=== PATIENT | female | born 1955 | race Caucasian/White ===

== ENCOUNTER 2017-06-13 18:55 | Emergency (ER) | payer BC, OTHER ==
[~2017-06-13] VITALS: Ht 157.5 cm; Wt 83.5 kg
[2017-06-13 20:19] LABS: Urine RBC None Seen /hpf (0 - 4)
[2017-06-13 20:45] LABS: Urine Bilirubin Negative (Negative); Urine Blood Negative /uL (Negative); Urine Color Yellow (Yellow); Urine Glucose 4+ mg/dL (Normal); Urine Ketone 1+ (Negative); Urine Mucus FEW (None Seen); Urine Nitrite Negative (Negative); Urine Squamous Epithelial Cell FEW /hpf (<5); Urine Urobilinogen Normal (Negative); Urine pH 5.5 (5.0-8.0)
[2017-06-13 21:14] LABS: Albumin 3.6 g/dL (3.4-5.0); Alkaline Phosphatase 89 U/L (45-117); Anion Gap 7 (5-15); Aspartate Aminotransferase 48 U/L (15-37); BUN/Creatinine Ratio 33.8; Bilirubin, Total 0.3 mg/dL (0.2-1.0); Blood Urea Nitrogen 25 mg/dL (7-18); Calcium 9.3 mg/dL (8.5-10.1); Carbon Dioxide 30 mmol/L (21-32); Chloride 99 mmol/L (98-107); GFR African American 102 mL/min; GFR Non-African American 84 mL/min; Glucose 241 mg/dL (74-106); Magnesium 1.9 mg/dL (1.6-2.6); Potassium 3.8 mmol/L (3.5-5.1); Sodium 136 mmol/L (136-145); Total Protein 8.1 g/dL (6.4-8.2)
[2017-06-13 21:20] LABS: Basophils # (auto) 0 uL; Basophils % (auto) 0.2 % (0.0-2.0); CONDITION Y; DEFINITIVE SEE PRINTOUT; Eosinophils # (auto) 0.8 uL; Eosinophils % (auto) 5.6 % (0.0-7.0); Hematocrit 38.8 % (36.0-46.0); Lymphocytes # (auto) 2.5 uL; Mean Corpuscular Hemoglobin 19.8 pg (28.0-32.0); Mean Corpuscular Hgb Conc. 30.9 g/dL (32.0-36.0); Mean Corpuscular Volume 64.1 fL (80.0-100.0); Mean Platelet Volume 10.3 fL (6.9-10.8); Monocytes # (auto) 0.6 uL; Neutrophils # (auto) 10.2 uL; Neutrophils % (auto) 72.2 % (37.0-80.0); Platelet Count (auto) 377 10^3/uL (140-450); Red Cell Distribution Width 15.3 % (11.8-14.3); White Blood Cell 14.1 10^3/uL (4.4-10.8)
[2017-06-13 21:21] LABS: B-Type Natriuretic Peptide 7.23 pg/mL (0-100)
[2017-06-13 21:46] LABS: Temperature: 22.7 C (20.0-25.0)
[2017-06-13 21:50] LABS: Hypochromia Marked; Microcytosis Marked; Platelet Estimate Adequate
[2017-06-14] MEDS ORDERED: cefTRIAXone 1GM/50ML D5W 50 ML IV ONE (02:15)
[2017-06-14] MEDS ORDERED: SODIUM CHLORIDE 0.9% 1,000 ML IV ONE (02:15)
[2017-06-14 04:51] VITALS: BP 112/67
== END 2017-06-14 05:22 | disposition home or self-care (01) ==
LOC: ER 19:03
DX: E11.9 Type 2 diabetes mellitus without complications (principal); M79.604 Pain in right leg; M79.605 Pain in left leg; J45.909 Unspecified asthma, uncomplicated; I10 Essential (primary) hypertension; Z90.89 Acquired absence of other organs; Z90.49 Acquired absence of other specified parts of digestive tract
CPT/HCPCS: 36415; 71010; 80053; 81001; 83735; 83880; 84484; 85025; 93005; 96365; 99285; J0696; J7030

== ENCOUNTER 2021-06-12 04:11 | Emergency (ER) | payer BC ==
[~2021-06-12] VITALS: Ht 157.5 cm; Wt 80.3 kg
[2021-06-12 08:14] LABS: Basophils # (auto) 0 10 ^3/uL (0-0.2); Eosinophils # (auto) 0 10 ^3/uL (0-0.8); Eosinophils % (auto) 0.1 % (0.0-7.0); Lymphocytes # (auto) 1.2 10 ^3/uL (0.4-5.4); Monocytes # (auto) 0.4 10 ^3/uL (0-1.3)
[2021-06-12] MEDS ORDERED: SODIUM CHLORIDE 0.9% 1,000 ML IV ONE (08:15)
[2021-06-12 08:17] LABS: Basophils % (auto) 0.2 % (0.0-2.0); Hemoglobin 11.1 g/dL (12.2-16.2); Lymphocytes % (auto) 8.7 % (10.0-50.0); Mean Corpuscular Hemoglobin 19.7 pg (28.0-32.0); Mean Corpuscular Hgb Conc. 30.7 g/dL (32.0-36.0); Mean Corpuscular Volume 64.1 fL (80.0-100.0); Neutrophils # (auto) 12.4 10 ^3/uL (1.6-8.6); Nucleated Red Blood Cells % 0.2 %; Red Blood Cells 5.62 10^6/uL (4.0-5.20); White Blood Cell 14.1 10^3/uL (4.4-10.8)
[2021-06-12 08:34] LABS: Albumin 3.5 g/dL (3.4-5.0); Anion Gap 11 (5-15); Blood Urea Nitrogen 31 mg/dL (7-18); Calcium 8.9 mg/dL (8.5-10.1); Carbon Dioxide 22 mmol/L (21-32); Chloride 101 mmol/L (98-107); Glucose 360 mg/dL (74-106); Potassium 4.1 mmol/L (3.5-5.1); Sodium 134 mmol/L (136-145)
[2021-06-12 08:40] LABS: Alanine Aminotransferase 41 U/L (13-56); Alkaline Phosphatase 81 U/L (45-117); Aspartate Aminotransferase 17 U/L (15-37); BUN/Creatinine Ratio 30.4; Bilirubin, Total 0.4 mg/dL (0.2-1.0); GFR African American 69 mL/min; GFR Non-African American 57 mL/min; Total Protein 7.8 g/dL (6.4-8.2)
[2021-06-12] MEDS ORDERED: ALBUTEROL SULF 2.5 MG/0.5ML(0.5%) NEB SOLN HHN STA (14:43)
[2021-06-12] MEDS ORDERED: IPRATROPIUM BROM 0.5 MG/2.5ML INH SOL NEB ONE ×2 (14:45)
[2021-06-12] MEDS ORDERED: ALBUTEROL SULF 2.5 MG/0.5ML(0.5%) NEB SOLN NEB ONE (14:45)
[2021-06-12 15:52] VITALS: BP 120/60
== END 2021-06-12 16:00 | disposition home or self-care (01) ==
LOC: ER 04:11
DX: E11.65 Type 2 diabetes mellitus with hyperglycemia (principal); J45.901 Unspecified asthma with (acute) exacerbation; D50.9 Iron deficiency anemia, unspecified; I10 Essential (primary) hypertension; Z90.49 Acquired absence of other specified parts of digestive tract; Z90.89 Acquired absence of other organs; Z20.822 Contact with and (suspected) exposure to COVID-19
CPT/HCPCS: 36415; 71046; 80053; 82962; 83735; 84484; 85025; 87426; 93005; 94640; 96360; 96361; 99285; J7030; J7644

== ENCOUNTER 2021-10-29 13:40 | Emergency (ER) | payer BC ==
[~2021-10-29] VITALS: Ht 157.5 cm; Wt 72.6 kg
[2021-10-29] MEDS ORDERED: SODIUM CHLORIDE 0.9% 1,000 ML IV ONE (14:00)
[2021-10-29 14:37] LABS: Basophils # (auto) 0 10 ^3/uL (0-0.2); Eosinophils # (auto) 0.2 10 ^3/uL (0-0.8); Hematocrit 28.5 % (36.0-46.0); Monocytes # (auto) 0.4 10 ^3/uL (0-1.3); Monocytes % (auto) 3.9 % (0.0-12.0); Neutrophils # (auto) 7.7 10 ^3/uL (1.6-8.6); Nucleated Red Blood Cells % 0.1 %
[2021-10-29 14:39] LABS: Basophils % (auto) 0.2 % (0.0-2.0); Eosinophils % (auto) 2.1 % (0.0-7.0); Lymphocytes # (auto) 1.1 10 ^3/uL (0.4-5.4); Lymphocytes % (auto) 11.7 % (10.0-50.0); Mean Corpuscular Hemoglobin 22.5 pg (28.0-32.0); Mean Corpuscular Hgb Conc. 31.6 g/dL (32.0-36.0); Mean Corpuscular Volume 71.4 fL (80.0-100.0); Neutrophils % (auto) 82.1 % (37.0-80.0); Red Blood Cells 3.99 10^6/uL (4.0-5.20); White Blood Cell 9.4 10^3/uL (4.4-10.8)
[2021-10-29 15:00] LABS: Calcium 8.5 mg/dL (8.5-10.1); Potassium 3.6 mmol/L (3.5-5.1)
[2021-10-29 15:04] LABS: BUN/Creatinine Ratio 41.1; Bilirubin, Total 0.5 mg/dL (0.2-1.0); Total Protein 7.6 g/dL (6.4-8.2)
[2021-10-29 16:40] LABS: CRP High Sensitivity 8.01 mg/dL (< 0.3)
[2021-10-29] MEDS ORDERED: IOHEXOL 300 MG/ML 100ML BOTTLE IJ ONE (16:46)
[2021-10-29 22:10] VITALS: BP 101/44
== END 2021-10-29 22:14 | disposition home or self-care (01) ==
LOC: ER 13:40
DX: R19.7 Diarrhea, unspecified (principal); D50.9 Iron deficiency anemia, unspecified; R79.82 Elevated C-reactive protein (CRP); E11.9 Type 2 diabetes mellitus without complications; I10 Essential (primary) hypertension; J45.909 Unspecified asthma, uncomplicated; Z90.49 Acquired absence of other specified parts of digestive tract; Z90.89 Acquired absence of other organs
CPT/HCPCS: 36415; 74177; 80053; 83605; 83735; 85025; 86141; 87426; 93005; 96360; 96361; 99285; J7030; Q9967

== ENCOUNTER 2021-10-31 08:17 | Emergency (ER) | payer BC ==
[~2021-10-31] VITALS: Ht 157.5 cm; Wt 72.6 kg
[2021-10-31 09:19] LABS: Basophils # (auto) 0 10 ^3/uL (0-0.2); Basophils % (auto) 0.2 % (0.0-2.0); Eosinophils # (auto) 0.2 10 ^3/uL (0-0.8); Hemoglobin 8.6 g/dL (12.2-16.2); Lymphocytes # (auto) 0.6 10 ^3/uL (0.4-5.4); Mean Corpuscular Hgb Conc. 31.2 g/dL (32.0-36.0); Monocytes # (auto) 0.2 10 ^3/uL (0-1.3); Neutrophils # (auto) 6.4 10 ^3/uL (1.6-8.6)
[2021-10-31 09:21] LABS: Hematocrit 27.5 % (36.0-46.0); Lymphocytes % (auto) 7.9 % (10.0-50.0); Monocytes % (auto) 2.9 % (0.0-12.0); Red Blood Cells 3.85 10^6/uL (4.0-5.20); White Blood Cell 7.4 10^3/uL (4.4-10.8)
[2021-10-31 09:25] LABS: Mean Corpuscular Hemoglobin 22.3 pg (28.0-32.0); Mean Corpuscular Volume 71.6 fL (80.0-100.0); Red Cell Distribution Width 19.3 % (11.8-14.3)
[2021-10-31 09:35] LABS: Albumin 2.8 g/dL (3.4-5.0); Calcium 8.8 mg/dL (8.5-10.1); Potassium 3.3 mmol/L (3.5-5.1)
[2021-10-31 09:41] LABS: BUN/Creatinine Ratio 21.2; Bilirubin, Total 0.3 mg/dL (0.2-1.0); Total Protein 7.3 g/dL (6.4-8.2)
[2021-10-31 12:19] LABS: Urine Bacteria NONE SEEN /hpf (None Seen); Urine Blood Negative /uL (Negative); Urine Hyaline Cast FEW /lpf (0 - 2); Urine Mucus FEW (None Seen); Urine Specific Gravity 1.019 (1.001-1.035); Urine WBC 15 /hpf (0 - 5)
[2021-10-31] MEDS ORDERED: NITR-87 PO (13:08)
[2021-10-31] MEDS ORDERED: POTASSIUM EFFERVESENT TAB 25 MEQ PO ONE (13:15)
[2021-10-31 13:28] VITALS: BP 126/65
== END 2021-10-31 14:50 | disposition home or self-care (01) ==
LOC: ER 08:17
DX: K52.9 Noninfective gastroenteritis and colitis, unspecified (principal); N39.0 Urinary tract infection, site not specified; E11.9 Type 2 diabetes mellitus without complications; I10 Essential (primary) hypertension; J45.909 Unspecified asthma, uncomplicated; Z90.49 Acquired absence of other specified parts of digestive tract; Z90.89 Acquired absence of other organs
CPT/HCPCS: 36415; 80053; 81001; 82962; 84484; 85025; 93005

== ENCOUNTER 2022-08-04 16:25 | Emergency (ER) | payer BC ==
[~2022-08-04] VITALS: Ht 157.5 cm; Wt 80.0 kg
[~2022-08-04 16:25] MED LIST: NITR-87 PO
[2022-08-04 17:05] VITALS: BP 178/51
[2022-08-04] MEDS ORDERED: TRAM-297 PO (18:11)
[2022-08-04] MEDS ORDERED: HYDROcodone-ACET 5/325MG TAB PO ONE (18:15)
== END 2022-08-04 18:19 | disposition home or self-care (01) ==
LOC: ER 16:25
DX: M54.41 Lumbago with sciatica, right side (principal); M43.16 Spondylolisthesis, lumbar region; E11.9 Type 2 diabetes mellitus without complications; I10 Essential (primary) hypertension; J45.909 Unspecified asthma, uncomplicated; Z90.49 Acquired absence of other specified parts of digestive tract; Z90.89 Acquired absence of other organs
CPT/HCPCS: 72100

== ENCOUNTER 2022-08-19 12:06 | Emergency (ER) | payer BC ==
[~2022-08-19] VITALS: Ht 157.5 cm; Wt 81.0 kg
[~2022-08-19 12:06] MED LIST changes: +TRAM-297 PO
[2022-08-19 12:29] VITALS: BP 140/63
[2022-08-19] MEDS ORDERED: SODIUM CHLORIDE 0.9% 1,000 ML IV ONE (13:00)
[2022-08-19] MEDS ORDERED: SODIUM CHLORIDE 0.9% 1,000 ML IVB ONE (13:00)
[2022-08-19 13:21] LABS: Basophils # (auto) 0 10 ^3/uL (0-0.2); Basophils % (auto) 0.2 % (0.0-2.0); Eosinophils # (auto) 0.1 10 ^3/uL (0-0.8); Eosinophils % (auto) 0.7 % (0.0-7.0); Monocytes # (auto) 0.5 10 ^3/uL (0-1.3); White Blood Cell 11.2 10^3/uL (4.4-10.8)
[2022-08-19 13:23] LABS: Hematocrit 30.2 % (36.0-46.0); Hemoglobin 9.3 g/dL (12.2-16.2); Lymphocytes # (auto) 0.5 10 ^3/uL (0.4-5.4); Lymphocytes % (auto) 4.8 % (10.0-50.0); Mean Corpuscular Hemoglobin 19.3 pg (28.0-32.0); Mean Corpuscular Hgb Conc. 30.7 g/dL (32.0-36.0); Mean Corpuscular Volume 62.7 fL (80.0-100.0); Monocytes % (auto) 4.8 % (0.0-12.0); Neutrophils % (auto) 89.5 % (37.0-80.0); Red Blood Cells 4.82 10^6/uL (4.0-5.20)
[2022-08-19 13:55] LABS: Potassium 3.6 mmol/L (3.5-5.1)
[2022-08-19 13:56] LABS: Albumin 3.4 g/dL (3.4-5.0); BUN/Creatinine Ratio 18.5; Calcium 9.1 mg/dL (8.5-10.1); Magnesium 1.8 mg/dL (1.6-2.6)
[2022-08-19 13:58] LABS: Bilirubin, Total 0.8 mg/dL (0.2-1.0); Total Protein 7.7 g/dL (6.4-8.2)
[2022-08-19] MEDS ORDERED: AZIT500T PO (16:07)
[2022-08-19] MEDS ORDERED: DEXT1SYP9 PO (16:07)
[2022-08-19] MEDS ORDERED: DICL50TA2 PO (16:07)
== END 2022-08-19 17:35 | disposition home or self-care (01) ==
LOC: ER 12:06
DX: J40 Bronchitis, not specified as acute or chronic (principal); B34.9 Viral infection, unspecified; D50.9 Iron deficiency anemia, unspecified; E11.9 Type 2 diabetes mellitus without complications; I10 Essential (primary) hypertension; J45.909 Unspecified asthma, uncomplicated; Z90.49 Acquired absence of other specified parts of digestive tract; Z90.89 Acquired absence of other organs; Z20.822 Contact with and (suspected) exposure to COVID-19
CPT/HCPCS: 36415; 71046; 80053; 82962; 83735; 85025; 87426; 87804

== ENCOUNTER 2022-08-20 23:20 | Inpatient (IN) | payer MEDICARE, BC ==
[~2022-08-20] VITALS: Ht 157.5 cm; Wt 80.9 kg
[~2022-08-20 23:20] MED LIST changes: +AZIT500T PO; +DEXT1SYP9 PO; +DICL50TA2 PO
[2022-08-21] MEDS ORDERED: DexAMETHasone SOD PHOS 10MG/1ML VIAL INJ IM ONE (00:30)
[2022-08-21 00:40] LABS: Basophils # (auto) 0 10 ^3/uL (0-0.2); Basophils % (auto) 0.2 % (0.0-2.0); Eosinophils # (auto) 0.3 10 ^3/uL (0-0.8); Eosinophils % (auto) 4.2 % (0.0-7.0); Hematocrit 30.2 % (36.0-46.0); Hemoglobin 9.1 g/dL (12.2-16.2); Lymphocytes # (auto) 0.7 10 ^3/uL (0.4-5.4); Lymphocytes % (auto) 9.2 % (10.0-50.0); Mean Corpuscular Hemoglobin 19.2 pg (28.0-32.0); Mean Corpuscular Hgb Conc. 30.1 g/dL (32.0-36.0); Mean Corpuscular Volume 63.7 fL (80.0-100.0); Monocytes # (auto) 0.5 10 ^3/uL (0-1.3); Neutrophils # (auto) 5.8 10 ^3/uL (1.6-8.6); Neutrophils % (auto) 79.4 % (37.0-80.0); Nucleated Red Blood Cells % 0.1 %; Red Blood Cells 4.75 10^6/uL (4.0-5.20); Red Cell Distribution Width 14.9 % (11.8-14.3); White Blood Cell 7.3 10^3/uL (4.4-10.8)
[2022-08-21 00:52] LABS: Albumin 3.2 g/dL (3.4-5.0); BUN/Creatinine Ratio 31.8; Calcium 8.7 mg/dL (8.5-10.1); Potassium 3.9 mmol/L (3.5-5.1)
[2022-08-21 00:54] LABS: Bilirubin, Total 0.6 mg/dL (0.2-1.0); Total Protein 6.9 g/dL (6.4-8.2)
[2022-08-21] MEDS ORDERED: ALBUTEROL SULF 2.5 MG/0.5ML(0.5%) NEB SOLN NEB ONE ×2 (05:45)
[2022-08-21] MEDS ORDERED: IPRATROPIUM BROM 0.5 MG/2.5ML INH SOL NEB ONE ×2 (05:45)
[2022-08-21] MEDS ORDERED: DEXTROSE (50%) 50ML SYRG IV PRN (07:15)
[2022-08-21] MEDS ORDERED: ACETAMINOPHEN 325 MG TAB PO PRN (07:15)
[2022-08-21] MEDS ORDERED: NITROGLYCERIN 0.4 MG SL TAB SL PRN (07:15)
[2022-08-21] MEDS ORDERED: MORPHINE SULFATE INJ 2 MG/ml SYRG IV PRN (07:15)
[2022-08-21] MEDS ORDERED: ONDANSETRON HCL 4 MG/2 ML VIAL IV PRN (07:15)
[2022-08-21] MEDS: amLODIPine BESYLATE 5 MG TAB PO SCH (10:18)
[2022-08-21] MEDS: ASPirin 81 mg TAB PO SCH (10:18)
[2022-08-21] MEDS: methylPREDNISolone SOD SUCC 40 MG/ML VL IV SCH ×2 (10:19→21:49)
[2022-08-21] MEDS: ACCU-CHEK COMFORT CURVE STRIP VI SCH ×3 (11:50→21:54)
[2022-08-21] MEDS: InsuLIN REG 1unit/0.01ml Soln (100units/ml) SC SCH ×3 (11:50→22:56)
[2022-08-21] MEDS: IPRATROPIUM BROM 0.5 MG/2.5ML INH SOL NEB SCH ×2 (12:00→18:42)
[2022-08-21] MEDS: ALBUTEROL SULF 2.5 MG/0.5ML(0.5%) NEB SOLN NEB SCH ×2 (12:00→18:42)
[2022-08-21] MEDS: guaiFENesin-DM 100/10mg/5ml SYR PO PRN (18:31)
[2022-08-21 20:48] VITALS: BP 107/52
[2022-08-21 21:46] VITALS: BP 109/48
[2022-08-21 22:00] VITALS: BP 105/48
[2022-08-22] MEDS: guaiFENesin-DM 100/10mg/5ml SYR PO PRN ×2 (01:37→17:55)
[2022-08-22] MEDS: IPRATROPIUM BROM 0.5 MG/2.5ML INH SOL NEB SCH ×4 (01:44→18:56)
[2022-08-22] MEDS: ALBUTEROL SULF 2.5 MG/0.5ML(0.5%) NEB SOLN NEB SCH ×4 (01:45→18:55)
[2022-08-22 05:00] VITALS: BP 104/44
[2022-08-22 05:46] LABS: Basophils # (auto) 0 10 ^3/uL (0-0.2); Eosinophils # (auto) 0 10 ^3/uL (0-0.8); Mean Corpuscular Hemoglobin 19.6 pg (28.0-32.0); Mean Corpuscular Hgb Conc. 31.4 g/dL (32.0-36.0); Monocytes # (auto) 0.2 10 ^3/uL (0-1.3); Nucleated Red Blood Cells % 0.1 %
[2022-08-22 05:49] LABS: Basophils % (auto) 0.1 % (0.0-2.0); Hematocrit 26.6 % (36.0-46.0); Hemoglobin 8.3 g/dL (12.2-16.2); Lymphocytes # (auto) 0.5 10 ^3/uL (0.4-5.4); Mean Corpuscular Volume 62.4 fL (80.0-100.0); Monocytes % (auto) 3.2 % (0.0-12.0); Neutrophils % (auto) 89.7 % (37.0-80.0); Red Blood Cells 4.26 10^6/uL (4.0-5.20); Red Cell Distribution Width 14.8 % (11.8-14.3); White Blood Cell 6.7 10^3/uL (4.4-10.8)
[2022-08-22 06:06] LABS: BUN/Creatinine Ratio 55.9; Calcium 8.7 mg/dL (8.5-10.1)
[2022-08-22] MEDS: InsuLIN REG 1unit/0.01ml Soln (100units/ml) SC SCH ×4 (06:56→22:26)
[2022-08-22] MEDS: ACCU-CHEK COMFORT CURVE STRIP VI SCH ×4 (06:56→22:25)
[2022-08-22] MEDS ORDERED: HYDR25TA5 PO (09:59)
[2022-08-22] MEDS ORDERED: GABA100C9 PO (09:59)
[2022-08-22] MEDS ORDERED: ATOR20TA PO (09:59)
[2022-08-22] MEDS ORDERED: PIO30T PO (09:59)
[2022-08-22] MEDS ORDERED: MONT5CHW23 PO (09:59)
[2022-08-22] MEDS ORDERED: NAP500T PO (09:59)
[2022-08-22] MEDS ORDERED: LISI20TA28 PO (09:59)
[2022-08-22] MEDS: amLODIPine BESYLATE 5 MG TAB PO SCH (10:00)
[2022-08-22] MEDS ORDERED: LORA-622 PO (10:03)
[2022-08-22] MEDS: ASPirin 81 mg TAB PO SCH (11:10)
[2022-08-22] MEDS: methylPREDNISolone SOD SUCC 40 MG/ML VL IV SCH ×2 (11:10→22:24)
[2022-08-22 13:00] VITALS: BP 116/75
[2022-08-22 16:43] VITALS: BP 101/55
[2022-08-22] MEDS ORDERED: ATORVASTATIN 20 MG TAB PO SCH (22:00)
[2022-08-22] MEDS: GABAPENTIN 100 MG CAP PO SCH (22:25)
[2022-08-22 23:06] VITALS: BP 151/50
[2022-08-23] MEDS: ACCU-CHEK COMFORT CURVE STRIP VI SCH ×2 (05:50→12:41)
[2022-08-23] MEDS: IPRATROPIUM BROM 0.5 MG/2.5ML INH SOL NEB SCH ×2 (05:54→13:22)
[2022-08-23] MEDS: ALBUTEROL SULF 2.5 MG/0.5ML(0.5%) NEB SOLN NEB SCH ×2 (05:54→13:22)
[2022-08-23 06:04] VITALS: BP 110/51
[2022-08-23] MEDS: InsuLIN REG 1unit/0.01ml Soln (100units/ml) SC SCH ×2 (06:18→12:40)
[2022-08-23 09:00] VITALS: BP 125/54
[2022-08-23] MEDS ORDERED: LISINOPRIL 20 MG TAB PO SCH (10:00)
[2022-08-23] MEDS ORDERED: HCTZ 25 MG TAB PO SCH (10:00)
[2022-08-23] MEDS ORDERED: LORATADINE 10 MG TAB PO SCH (10:00)
[2022-08-23] MEDS: amLODIPine BESYLATE 5 MG TAB PO SCH (10:00)
[2022-08-23] MEDS ORDERED: PIOGLITAZONE HYDROCHLORIDE 30 MG TAB PO SCH (10:00)
[2022-08-23] MEDS: GABAPENTIN 100 MG CAP PO SCH (10:42)
[2022-08-23] MEDS: ASPirin 81 mg TAB PO SCH (10:43)
[2022-08-23] MEDS: methylPREDNISolone SOD SUCC 40 MG/ML VL IV SCH (10:44)
[2022-08-23] MEDS ORDERED: AZIT250T PO (11:56)
[2022-08-23] MEDS ORDERED: METH4PAK PO ×2 (11:56→13:25)
[2022-08-23 13:00] VITALS: BP 119/60
[2022-08-23] MEDS ORDERED: AZIT250T8 PO (13:24)
== END 2022-08-23 14:30 | disposition home or self-care (01) | DRG 189 ==
LOC: ER 23:20 → TELE 08-21 07:10 → TELE-WESTW 08-21 21:20
PROVIDERS: ADMIT Nurse Practitioner; ATTEND Internal Medicine
DX: J96.21 Acute and chronic respiratory failure with hypoxia (principal); J45.901 Unspecified asthma with (acute) exacerbation; E11.65 Type 2 diabetes mellitus with hyperglycemia; I10 Essential (primary) hypertension; E66.9 Obesity, unspecified; Z20.822 Contact with and (suspected) exposure to COVID-19; Z87.442 Personal history of urinary calculi; Z68.32 Body mass index [BMI] 32.0-32.9, adult; Z90.49 Acquired absence of other specified parts of digestive tract
CPT/HCPCS: 36415; 71046; 80048; 80053; 82962; 84484; 85025; 87426; 94640; 96372; 96374; G0378; J1100; J1815

== ENCOUNTER 2023-03-03 17:11 | Emergency (ER) | payer BC, MEDICARE ==
[~2023-03-03] VITALS: Ht 157.5 cm; Wt 85.2 kg
[~2023-03-03 17:11] MED LIST changes: +ATOR20TA PO; +AZIT-74 PO; +AZIT-81 PO; -AZIT500T PO; +GABA-1308 PO; +HYDR25TA5 PO; +LISI20TA56 PO; +LORA-622 PO; +METH4PAK PO; +MONT5CHW12 PO; +NAP500T PO; +PIO30T PO
[2023-03-04 01:41] LABS: Basophils # (auto) 0 10 ^3/uL (0-0.2); Hematocrit 30.4 % (36.0-46.0); Hemoglobin 9.5 g/dL (12.2-16.2); Mean Corpuscular Hemoglobin 19.7 pg (28.0-32.0); Monocytes # (auto) 0.6 10 ^3/uL (0-1.3); Neutrophils # (auto) 7.3 10 ^3/uL (1.6-8.6)
[2023-03-04 01:43] LABS: Basophils % (auto) 0.4 % (0.0-2.0); Eosinophils # (auto) 0.3 10 ^3/uL (0-0.8); Eosinophils % (auto) 3.2 % (0.0-7.0); Lymphocytes # (auto) 2.1 10 ^3/uL (0.4-5.4); Lymphocytes % (auto) 20.2 % (10.0-50.0); Mean Corpuscular Hgb Conc. 31.1 g/dL (32.0-36.0); Mean Corpuscular Volume 63.5 fL (80.0-100.0); Monocytes % (auto) 5.4 % (0.0-12.0); Neutrophils % (auto) 70.8 % (37.0-80.0); Nucleated Red Blood Cells % 0.3 %; Red Blood Cells 4.79 10^6/uL (4.0-5.20); Red Cell Distribution Width 15.2 % (11.8-14.3); White Blood Cell 10.3 10^3/uL (4.4-10.8)
[2023-03-04 02:25] LABS: Albumin 3.3 g/dL (3.4-5.0); BUN/Creatinine Ratio 37.1 (10.0-20.0); Calcium 9.3 mg/dL (8.5-10.1)
[2023-03-04 02:28] LABS: Bilirubin, Total 0.6 mg/dL (0.2-1.0); Total Protein 6.8 g/dL (6.4-8.2)
[2023-03-04 04:58] VITALS: BP 123/46
== END 2023-03-04 04:59 | disposition home or self-care (01) ==
LOC: ER 17:11
DX: R60.0 Localized edema (principal); E88.09 Other disorders of plasma-protein metabolism, not elsewhere classified; R79.89 Other specified abnormal findings of blood chemistry; J45.909 Unspecified asthma, uncomplicated; E11.9 Type 2 diabetes mellitus without complications; I10 Essential (primary) hypertension; Z87.442 Personal history of urinary calculi; Z90.89 Acquired absence of other organs; Z90.49 Acquired absence of other specified parts of digestive tract
CPT/HCPCS: 36415; 80053; 83690; 83880; 84484; 85025; 93970

== ENCOUNTER 2023-05-19 23:32 | Emergency (ER) | payer BC ==
[~2023-05-19] VITALS: Ht 157.5 cm; Wt 80.7 kg
[2023-05-20 00:06] LABS: Basophils # (auto) 0 10 ^3/uL (0-0.2); Basophils % (auto) 0.1 % (0.0-2.0); Eosinophils # (auto) 0 10 ^3/uL (0-0.8); Eosinophils % (auto) 0.1 % (0.0-7.0); Hemoglobin 8.8 g/dL (12.2-16.2); Lymphocytes # (auto) 0.4 10 ^3/uL (0.4-5.4)
[2023-05-20 00:08] LABS: Hematocrit 28.5 % (36.0-46.0); Lymphocytes % (auto) 3.6 % (10.0-50.0); Mean Corpuscular Hemoglobin 19.3 pg (28.0-32.0); Mean Corpuscular Hgb Conc. 30.9 g/dL (32.0-36.0); Mean Corpuscular Volume 62.2 fL (80.0-100.0); Monocytes # (auto) 0.3 10 ^3/uL (0-1.3); Monocytes % (auto) 2.8 % (0.0-12.0); Neutrophils # (auto) 10.6 10 ^3/uL (1.6-8.6); Neutrophils % (auto) 93.4 % (37.0-80.0); Nucleated Red Blood Cells % 0.2 %; Red Blood Cells 4.58 10^6/uL (4.0-5.20); Red Cell Distribution Width 15.3 % (11.8-14.3); White Blood Cell 11.3 10^3/uL (4.4-10.8)
[2023-05-20 00:23] LABS: Albumin 3.8 g/dL (3.4-5.0); BUN/Creatinine Ratio 33.7 (10.0-20.0)
[2023-05-20 00:26] LABS: Bilirubin, Total 0.4 mg/dL (0.2-1.0); Total Protein 7.3 g/dL (6.4-8.2)
[2023-05-20 01:48] LABS: Rapid Influenza A Negative (Negative); Rapid Influenza B Negative (Negative)
[2023-05-20 01:49] LABS: COVID19 ANTIGEN SOFIA FIA NEGATIVE (NEGATIVE)
[2023-05-20] MEDS ORDERED: DOXYCYCLINE 100 MG TAB/CAP PO ONE (03:30)
[2023-05-20] MEDS ORDERED: BUDESONIDE (INHALATION) 0.5 MG/2 ML NEB NEB ONE (03:30)
[2023-05-20] MEDS ORDERED: ALBUTEROL SULF 2.5 MG/0.5ML(0.5%) NEB SOLN NEB ONE (03:30)
[2023-05-20] MEDS ORDERED: DexAMETHasone 4 MG TAB PO ONE (03:30)
[2023-05-20] MEDS ORDERED: IPRATROPIUM BROM 0.5 MG/2.5ML INH SOL NEB ONE (03:30)
[2023-05-20] MEDS ORDERED: BUDE0.5S IN ×3 (03:52→04:44)
[2023-05-20] MEDS ORDERED: DOXY-286 PO ×3 (03:52→04:44)
[2023-05-20 04:40] VITALS: BP 136/66; PULSE 103; RESP 17; TEMP 98.4; O2SAT 93
== END 2023-05-20 04:46 | disposition home or self-care (01) ==
LOC: ER 23:32
DX: J40 Bronchitis, not specified as acute or chronic (principal); E11.9 Type 2 diabetes mellitus without complications; I10 Essential (primary) hypertension; Z87.442 Personal history of urinary calculi; Z90.49 Acquired absence of other specified parts of digestive tract; Z98.890 Other specified postprocedural states; Z20.822 Contact with and (suspected) exposure to COVID-19
CPT/HCPCS: 36415; 71045; 80053; 83735; 83880; 84484; 85025; 87426; 87804; 94640